=== PATIENT | female | born 1965 | race African-American/Black ===

== ENCOUNTER → 2017-07-05 | Outpatient (CLI) | payer BC, OTHER ==
[~2017-07-05] MED LIST: COZAAR 50 MG TA50 M2 PO; ELESTRIN144 GM TOP; LASIX 40 MG TAB40 M2 PO; NORCO 5-325 TA1 EACH PO; ZETIA10 MG PO
== END ==
LOC: RAD 14:27
DX: Z12.31 Encounter for screening mammogram for malignant neoplasm of breast (principal)

== ENCOUNTER → 2020-11-18 | Outpatient (CLI) | payer BC, OTHER | LOC: SJCVCIMAG 09:06 | PROVIDERS: ATTEND Internal Medicine | DX: I25.10 Atherosclerotic heart disease of native coronary artery without angina pectoris (principal) ==